=== PATIENT | female | born 1995 | race Caucasian/White ===

== ENCOUNTER → 2024-08-21 13:25 | Outpatient (REF) | payer OTHER, SELFPAY | LOC: HWRAD 13:25 | PROVIDERS: ATTENDING PHYSICIAN Nurse Practitioner Family; FAMILY PHYSICIAN Internal Medicine | DX: Z34.01 Encounter for supervision of normal first pregnancy, first trimester (principal) | CPT/HCPCS: 76801 ==

== ENCOUNTER → 2024-09-16 09:10 | Outpatient (REF) | payer OTHER, SELFPAY | LOC: PNTC 09:10 | PROVIDERS: ATTENDING PHYSICIAN Obstetrics & Gynecology | DX: Z36.0 Encounter for antenatal screening for chromosomal anomalies (principal); Z36.82 Encounter for antenatal screening for nuchal translucency | CPT/HCPCS: 36415; 76801; 76813 ==

== ENCOUNTER → 2024-10-17 08:32 | Outpatient (REF) | payer OTHER, SELFPAY | LOC: PNTC 08:32 | PROVIDERS: ATTENDING PHYSICIAN Obstetrics & Gynecology | DX: O99.210 Obesity complicating pregnancy, unspecified trimester (principal); O35.5XX0 Maternal care for (suspected) damage to fetus by drugs, not applicable or unspecified; Q87.83 Bardet-Biedl syndrome | CPT/HCPCS: 76805 ==

== ENCOUNTER → 2024-11-11 13:13 | Outpatient (REF) | payer OTHER, SELFPAY | LOC: PNTC 13:13 | PROVIDERS: ATTENDING PHYSICIAN Obstetrics & Gynecology | DX: Z14.8 Genetic carrier of other disease (principal); Z84.81 Family history of carrier of genetic disease; O99.210 Obesity complicating pregnancy, unspecified trimester; O99.320 Drug use complicating pregnancy, unspecified trimester | CPT/HCPCS: 76811; 76817 ==

== ENCOUNTER 2024-11-12 16:18 | Emergency (ER) | payer OTHER, SELFPAY ==
[2024-11-12 16:20] VITALS: BP 136/94
[2024-11-12 16:51] LABS: Hematocrit 31.1 % (37.0-47.0); Hemoglobin 10.9 g/dL (12.0-16.0); Mean Corp Hgb Conc. 35.0 g/dL (33.0-37.0); Mean Corpuscular Volume 89.1 fL (81.0-99.0); Nucleated Red Blood Cells % 0 %; Platelet Count 211 10^3/uL (130-400); Red Cell Dist. Width 13.2 % (11.5-14.5)
[2024-11-12 17:10] LABS: ALT (SGPT) 17 U/L (0-35); AST (SGOT) 22 U/L (14-36); Albumin 4.0 g/dl (3.5-5.0); Alkaline Phosphatase 64 U/L (38-126); Blood Urea Nitrogen 6 mg/dl (7-17); Calcium 9.4 mg/dl (8.4-10.2); Carbon Dioxide 26 mmol/L (22-30); Chloride 104 mmol/L (98-107); Glucose 90 mg/dl (70-99); Potassium 4.4 mmol/L (3.5-5.1); Sodium 134 mmol/L (135-145); Total Protein 7.2 g/dl (6.3-8.2); eGFR > 60.00
[2024-11-12 18:35] VITALS: BMI 31.8
[2024-11-12 19:00] VITALS: BP 107/72
--- NOTE | 2024-11-12 19:16 | ED.GENMED ---
History of Present Illness
General
Chief Complaint: Problems
Time Seen by Provider: 11/12/24 18:11
History of Present Illness
History of Present Illness:
FOCUSED PAST MEDICAL HISTORY
-
REVIEW OF OLD RECORDS
-
Note:
CHIEF COMPLAINT(S)
Sharp bilateral abdominal pain.
HISTORY OF PRESENT ILLNESS
The patient is a 29-year-old female, currently 21 weeks with her first , who presents with a sudden onset of very sharp bilateral abdominal pain. The pain started abruptly at approximately 3:30 PM and radiates downward from both
lateral sides of the abdomen. The patient notes that her pain is constant, unlike the intermittent description she found online associated with round ligament pain. She describes experiencing mild flutters from the baby but denies any vaginal
bleeding, fever, leg swelling, or vomiting. The severity of the pain has decreased since its onset, but it remains bothersome. She has not taken any medication for pain relief. The patients routine blood work returned with no notable abnormalities,
including a white blood cell count that was not elevated.
EXTERNAL RECORDS REVIEWED
Blood work results indicating no elevation in white blood cell count.
PHYSICAL EXAM
General: Alert, no acute distress.
Skin: Warm, dry.
Head: Normocephalic, atraumatic.
Neck: Supple, trachea midline.
Eye Ears, nose, mouth, and throat: Oral mucosa moist.
Cardiovascular: Normal peripheral perfusion, no edema.
Respiratory: Respirations are non-labored.
Gastrointestinal: Abdomen nondistended; mild tenderness primarily to the lateral aspects of the anterior abdomen noted.
Back: Normal range of motion, normal alignment.
Musculoskeletal: Normal range of motion, normal strength.
Neurological: Alert and oriented to person, place, time, and situation. No focal neurological deficit observed.
Psychiatric: Cooperative, appropriate mood, and affect.
PLAN
The plan is to await the official reading of the ultrasound and consult with the obstetrics team regarding the need for monitoring given the patients gestational age of 21 weeks, which is on the borderline for viability. If no further
intervention is recommended by the obstetrics team, and the 'basic stuff looks okay,' discharge might be considered.
DIFFERENTIAL DIAGNOSIS
The Differential Diagnosis includes, in no particular order and is not limited to:
- Round ligament pain
- Angelo Ramirez contractions
- labor
- Urinary tract infection
- Appendicitis
- Abdominal muscle strain or discomfort related to
- Ovarian cyst torsion
- Gastrointestinal causes such as constipation or gas
- Kidney stones
- Placental abruption
RADIOLOGY
- Ultrasound imaging obtained which shows breech presentation but otherwise normal live I[facility] and normal ultrasound of the abdomen
LABS
- White count 10.3, hemoglobin 10.9, chemistries unremarkable
UPDATE
- Although the patient appears uncomfortable at times, she declined any analgesia
SUMMARY OF ENCOUNTER
The patient, a 29-year-old female at 21 weeks of gestation, presented with sudden, sharp bilateral abdominal pain. An ultrasound was conducted and reviewed, showing the baby in a breech position but with a normal heartbeat. The pain, while abrupt
and sharp, was not associated with any signs of an imminent miscarriage or demise, as confirmed by the ultrasound and blood work, both of which appeared normal. Dr. Galarza was consulted regarding the situation. The absence of any urgent findings
allowed for a decision to manage conservatively with possible use of acetaminophen for pain relief at home. The patient was advised to monitor symptoms and contact her cosmetician apprentice for an earlier appointment if necessary.
PLAN
Encourage the patient to take acetaminophen (Tylenol) at home for pain management. Advise consulting the obstetricians office to possibly schedule an earlier appointment. Monitor symptoms, and if the pain worsens, return to the emergency department.
INDEPENDENT REVIEW OF LABS AND INTERPRETATION OF TESTS
My independent review of the ultrasound is that the baby is in a breech position, but there is a normal heartbeat and no signs of an imminent miscarriage or demise. Blood work returned normal, indicating no acute abnormalities or signs of
infection.
PATIENT EDUCATION AND COUNSELING
The patient was educated about the results of the ultrasound and reassured that no emergency condition was identified. The significance of the breech presentation was explained as being not uncommon at this stage of . The use of
acetaminophen for pain management was recommended, and the importance of follow-up with her cosmetician apprentice was emphasized.
FOLLOW-UP INSTRUCTIONS
Contact obstetricians office to potentially schedule an earlier appointment. Return to emergency department if pain worsens or for any new concerning symptoms.
MEDICATION RECONCILIATION
Prescribed acetaminophen for pain management at home.
MEDICAL DECISION MAKING
-Complexity of Data Reviewed: Differential diagnosis includes round ligament pain, Angelo Ramirez contractions, labor, urinary tract infection, appendicitis, abdominal muscle strain, ovarian cyst torsion, gastrointestinal causes, kidney
stones, and placental abruption.
-Data:
Category 1
Reviewed patients ultrasound and blood work, both of which appeared normal.
Category 3
Discussion of management with Dr. Galarza regarding the situation, confirming no need for admission based on current findings.
-Risk:
Consideration of Admission/Observation: Escalation of care including admission/observation was considered given the complexity and risk of the patients presenting complaint. However, ultimately the patient is deemed safe for outpatient management
with close follow-up. Reasoning: Work-up reassuring, does not reveal any acute life/organ threatening processes, patients symptoms well controlled upon reevaluation, reexamination is reassuring, vitals are stable, patient agreeable with discharge,
reliable for follow-up.
I discussed case with Dr. Gold over the phone
DIAGNOSIS
Abdominal pain during , unspecified (ICD-10: O26.89) Rounded ligament pain (ICD-10: O26.891)
Phy Exam
Physical Exam
Physical Exam:
See HPI
Course
Orders/Labs/Results
Orders:
Orders
11/12/24 16:42
Type And Crossmatch [Type+Screen] Urgent
CMP [Comprehensive Metabolic Panel] Urgent
Complete Blood Count/With Diff Urgent
11/12/24 16:45
US Abdomen Complete/Upper Urgent
Comment:
Reason For Exam: upper and lower abdominal pain
US Limited Urgent
Comment: 21 weeks preg, PNT SCAN DONE 11/11
Reason For Exam: lower abdominal pain
Abnormal Lab Results
11/12/24
16:42
RBC 3.49 L 10^6/uL
(4.20-5.40)
Hgb 10.9 L g/dL
(12.0-16.0)
Hct 31.1 L %
(37.0-47.0)
MCH 31.2 H pg
(27.0-31.0)
Abs Immat Gran (auto) 0.1 H 10^3/uL
(0-0.05)
Absolute Neuts (auto) 8.0 H 10^3/uL
(1.4-6.5)
Immature Gran % 0.9 H %
(0-0.5)
Neutrophils % 77.8 H %
(42.2-75.2)
Lymphocytes % 15.7 L %
(20.5-51.1)
Sodium 134 L mmol/L
(135-145)
BUN 6 L mg/dl
(7-17)
Creatinine 0.4 L mg/dL
(0.6-1.0)
11/12/24 16:42
11/12/24 16:42
Vital Signs
Initial and Last Documented VS:
Initial Vital Signs
Temp Pulse Resp BP Pulse Ox
36.8 C 124 20 136/94 98
11/12/24 16:20 11/12/24 16:20 11/12/24 16:20 11/12/24 16:20 11/12/24 16:20
Last Documented Vital Signs
Temp Pulse Resp BP Pulse Ox
36.7 C 124 20 104/69 98
11/12/24 19:15 11/12/24 16:20 11/12/24 16:20 11/12/24 20:00 11/12/24 20:00
Information
Weeks gestation: Weeks: (20)
Location: Location: ([facility])
*Pulse Oximetry
SaO2: 100
Oxygen Mode of Delivery: Room air
Patient hypoxic: no
*Critical Care Note
Total Time (30-74mins, 75-104mins- exclusive of procedures): Not Applicable
ED Attending Note
-
Portions of this chart may have been created with voice recognition software.� Occasional wrong word or��sound alike� substitutions may have occurred due to the inherent limitations of voice recognition software.
Discharge Plan
Departure
Patient Disposition: Home (Routine Discharge)
Date of Disposition: 11/12/24
Time of Disposition: 20:40
Patient with high blood pressure during this ER visit?: Yes
Discharge Problem:
Abdominal pain
Instructions: Abdominal pain in adults (DC)
Referrals:
Rehana Gold DO [Active, Gynecology]
Anne Marie Rodas CRNP [Family Provider, General]
Activity Restrictions/Additional Instructions:
Take Tylenol if needed for pain. I notified Dr. Alla yost. Call their office to arrange follow-up or return here if worse or other concerns. Other than the being in breech position, the ultrasound of the pelvis and the abdomen
were both normal.
Interventions
Interventions:
*Risk Screen - Suicide Last Done: 11/12/24 16:20
*General Assessment Last Done: 11/12/24 20:02
*ED- Fall Risk Assessment Last Done: 11/12/24 20:02
*ED Influenza Vaccine History Last Done: 11/12/24 20:02
ED-Female Genitourinary Assessment Last Done: 11/12/24 20:02
Discharge Date and Time
Print Language: SINHALA
[2024-11-12 20:00] VITALS: BP 104/69
== END 2024-11-12 21:06 | disposition home or self-care (01) ==
LOC: EMR 16:18
PROVIDERS: EMERGENCY PHYSICIAN Emergency Medicine; FAMILY PHYSICIAN Nurse Practitioner Adult Health
DX: O26.892 Other specified pregnancy related conditions, second trimester (principal); O32.1XX0 Maternal care for breech presentation, not applicable or unspecified; R03.0 Elevated blood-pressure reading, without diagnosis of hypertension; Z3A.21 21 weeks gestation of pregnancy
CPT/HCPCS: 99284; 76700; 76815; 80053; 85025; 86850; 86900; 86901

== ENCOUNTER → 2024-12-17 08:50 | Outpatient (REF) | payer OTHER, SELFPAY | LOC: PNTC 08:50 | PROVIDERS: ATTENDING PHYSICIAN Obstetrics & Gynecology | DX: O99.213 Obesity complicating pregnancy, third trimester (principal); O99.323 Drug use complicating pregnancy, third trimester | CPT/HCPCS: 76816 ==

== ENCOUNTER → 2025-01-23 08:47 | Outpatient (REF) | payer OTHER, SELFPAY | LOC: PNTC 08:47 | PROVIDERS: ATTENDING PHYSICIAN Obstetrics & Gynecology | DX: O99.210 Obesity complicating pregnancy, unspecified trimester (principal); O99.323 Drug use complicating pregnancy, third trimester | CPT/HCPCS: 76816 ==